=== PATIENT | female | born 1950 | race Caucasian/White ===

== ENCOUNTER 2020-06-29 06:00 | Day surgery (SDC) | payer MEDICARE ==
[2020-06-28 10:00] VITALS: BP 163/66
[2020-06-28 10:15] LABS: BASOPHILS % (AUTO) 0.8 % (0.0-5.0); EOSINOPHILS % (AUTO) 3.3 % (0.0-8.0); HEMATOCRIT 42.6 % (36-48); LYMPHOCYTES % (AUTO) 21.5 % (21.0-51.0); MEAN CORPUSCULAR HEMOGLOBIN 31.2 pg (27.0-33.0); MEAN CORPUSCULAR HGB CONC 32.6 g/dL (32.0-36.0); MEAN CORPUSCULAR VOLUME 95.5 fL (79-99); MONOCYTES % (AUTO) 10.4 % (3.0-13.0); NEUTROPHILS % (AUTO) 63.5 % (40.0-77.0); PLATELET COUNT (AUTO) 282 K/uL (130-400); RED BLOOD CELL COUNT(AUTO) 4.46 MIL/uL (4.00-5.50); RED CELL DISTRIBUTION WIDTH 13.9 % (11.0-15.5); WHITE BLOOD COUNT (AUTO) 7.7 K/uL (4.8-10.8)
[2020-06-28 10:25] LABS: CREATININE 1.3 mg/dL (0.5-1.5); POTASSIUM 4.3 mmol/L (3.5-5.1)
[2020-06-28 10:38] LABS: INR 0.92 (0.85-1.15); PARTIAL THROMBOPLASTIN TIME 31.3 SEC (26.3-35.5)
[~2020-06-29] VITALS: Ht 172.7 cm; Wt 75.7 kg
[2020-06-29] VITALS (8 sets, daily range): BP systolic 132–168; BP diastolic 60–79
[~2020-06-29 06:00] MED LIST: ADV250 IH; AMLO5TAB9 PO; ATOR40TA71 PO; LEVO50TA11 PO; LISI-613 PO; METF-444 PO; METO-408 PO; OMEP10CA5 PO; TIOT4MIS5 IH
[2020-06-29] MEDS ORDERED: SODIUM CHLORIDE 0.9% 1000ML 1,000 ML IV ONE (06:26)
[2020-06-29] MEDS ORDERED: FENTANYL CITRATE PF 50 MCG/1 ML 2ML VIAL ONE (07:14)
[2020-06-29] MEDS ORDERED: MIDAZOLAM HCL 1 MG/ML 2ML VIAL ONE (07:14)
[2020-06-29] MEDS ORDERED: CEFAZOLIN SODIUM 1 GM VIAL ONE (07:14)
[2020-06-29] MEDS ORDERED: BUPIVACAINE/PF 0.25% 30ML VIAL IJ ONE (07:14)
[2020-06-29] MEDS ORDERED: LIDOCAINE HCL 1% MDV 50ML VIAL ONE (07:15)
--- NOTE | 2020-06-29 07:15 | NUR ---
IV Pt has a hx of left breast CA with nodes removed. Pacemaker is on the left side. Confirmed with pathology laboratory aide which side IV is to go in. Staff stated ok for IV to right side. IV started on right arm/wrist by Odessa Goff RN; WNL with no s/s of infiltration. NS began infusing at K[facility] without difficulty. Pt tolerated well.
--- NOTE | 2020-06-29 09:25 | NUR ---
Pt arrive Pt arrived from [facility] with ROBERT Purvis and ROBERT Giordano via bed. Pt AAOx3; noted oozing to dressing to left upper chest, no swelling; seen by [employer]. Pt denies any c/o. VS WNL. IV left at K[facility]. Ice pack applied as per order.
--- NOTE | 2020-06-29 10:15 | NUR ---
Increase oozing Noted increased noted to dressing; laborer brush clearing made aware. Staff arrived to evaluate it. Stated did not need reinforcement. No hematoma, no active bleeding noted. no signs of infection noted.
--- NOTE | 2020-06-29 10:30 | NUR ---
MD notified Oozing to dressing site increased; serous sanguinous noted across dressing. Outlined oozing with permanent marker. No hematoma, no swelling noted. Ice pack continues as ordered. Called Dr. Deleon to make him aware. Spoke to VINI Huntley and made him aware. Stated to hold pressure 10-15min.
--- NOTE | 2020-06-29 10:45 | NUR ---
Pressure Pressure was held to left upper chest incision site x15min; no further oozing noted. Ice pack continues.
--- NOTE | 2020-06-29 11:20 | NUR ---
D/C instructions Spoke to and discharge instructions were given. Informed him of oozing to site and that MD was aware. Informed him to monitor site closely and to report any changes to MD. Informed regarding new rx. All questions were answered.
--- NOTE | 2020-06-29 11:30 | NUR ---
Prepared to D/C Pt was prepared for d/c. Repeated d/c instructions to pt as given to . Verbalized understanding. Ice pack removed. No further oozing noted. Written d/c instructions and rx given. Pt was taken to private car via wheelchair, in no distress. waiting for her.
== END 2020-06-29 11:40 ==
LOC: DAH 06:00
PROVIDERS: ATTEND Internal Medicine Cardiovascular Disease
DX: Z45.010 Encounter for checking and testing of cardiac pacemaker pulse generator [battery] (principal); I44.2 Atrioventricular block, complete; I10 Essential (primary) hypertension; E78.5 Hyperlipidemia, unspecified; E11.9 Type 2 diabetes mellitus without complications; Z90.710 Acquired absence of both cervix and uterus; Z98.890 Other specified postprocedural states; Z79.01 Long term (current) use of anticoagulants; Z79.899 Other long term (current) drug therapy
CPT/HCPCS: 33228; 36415; 80048; 82948 ×2; 85025; 85610; 85730; 93005 ×2; A4215; A4216; A4221; A4222; A4223 ×3; A4606; A4663; C1785; J0690; J2250; J3010; J3490 ×2; J7030; 99156; 99157

== ENCOUNTER → 2020-08-20 | Outpatient (CLI) | payer MEDICARE ==
[~2020-08-20] MED LIST changes: +AMLO-257 PO; -AMLO5TAB9 PO
== END | disposition home or self-care (01) ==
LOC: RAH 14:22
PROVIDERS: ATTEND Internal Medicine Nephrology
DX: M48.061 Spinal stenosis, lumbar region without neurogenic claudication (principal); M54.5 Low back pain; M41.86 Other forms of scoliosis, lumbar region
CPT/HCPCS: 72131